=== PATIENT | female | born 1975 | race Caucasian/White ===

== ENCOUNTER 2021-04-05 18:58 | Emergency (ER) | payer BC ==
[~2021-04-05] VITALS: Ht 165.1 cm; Wt 68.0 kg
[2021-04-05] MEDS ORDERED: GLYCERIN ADULT RECTAL SUPP EACH RC ONE (19:15)
[2021-04-05] MEDS ORDERED: POLY17PO4 PO (19:20)
[2021-04-05 19:24] VITALS: BP 128/79
--- NOTE | 2021-04-05 19:24 | NUR ---
Patient discharged to home in stable condition. Written and verbal after care instructions given. Patient verbalizes understanding of instructions. Stressed follow up or return to ER for worsening s/s.
[2021-04-05] MEDS ORDERED: ONDANSETRON ODT 4 MG TAB.RAPDIS SL ONE (19:30)
[2021-04-05] MEDS ORDERED: ONDANSETRON ODT 4 MG TAB.RAPDIS ONE (19:31)
== END 2021-04-05 19:25 | disposition home or self-care (01) ==
LOC: ER 19:04
DX: K59.00 Constipation, unspecified (principal); Z85.3 Personal history of malignant neoplasm of breast
CPT/HCPCS: A4663; Q0162